=== PATIENT | female | born 1950 | race Caucasian/White ===

== ENCOUNTER → 2017-02-25 | Outpatient (CLI) | payer MEDICARE ==
--- NOTE | 2017-02-25 14:14 | CT ---
EXAMINATION TYPE: CT brain wo con DATE OF EXAM: 02/25/2017 COMPARISON: NONE HISTORY: dizziness, light-headed CT DLP: [address] of the brain was performed. The ventricles, basal cisterns and sulci overlying the cerebral convexities demonstrate mild enlargem ent. There is no evidence for intracranial hemorrhage or sulcal effacement. There is decreased attenuation about the periventricular white matter and deep white matter of both c erebral hemispheres, compatible with chronic small vessel ischemia. Differential diagnosis does inclu de demyelination. No mass effects are seen.No midline shift. Osseous calvarium is intact. If symptoms persist consider MRI. IMPRESSION: 1. Age related atrophic and chronic small vessel ischemic change without acute intracranial process s een at this time.
== END | disposition home or self-care (01) ==
LOC: RADCTMAIN 13:36
PROVIDERS: ATTEND Family Medicine
DX: I67.82 Cerebral ischemia (principal); G31.9 Degenerative disease of nervous system, unspecified; R26.9 Unspecified abnormalities of gait and mobility; Z88.0 Allergy status to penicillin; Z88.2 Allergy status to sulfonamides
CPT/HCPCS: 70450

== ENCOUNTER → 2017-03-19 | Outpatient (CLI) | payer MEDICARE ==
[2017-03-19 10:19] LABS: Blood Urea Nitrogen 21 mg/dL (7-17); Non-African American GFR(MDRD) >60 (>60 ml/min/1.73 sqM)
[2017-03-22 11:56] LABS: Lyme IgG/IgM 0.1 Index; Lyme IgG/IgM Interp NEGATIVE (NEGATIVE)
== END | disposition home or self-care (01) ==
LOC: LABWHC1 09:43
PROVIDERS: ATTEND Psychiatry & Neurology Neurology
DX: R42 Dizziness and giddiness (principal)
CPT/HCPCS: 36415; 82565; 84520; 86618

== ENCOUNTER → 2017-09-24 | Outpatient (CLI) | payer MEDICARE ==
--- NOTE | 2017-09-24 09:12 | MR ---
EXAMINATION TYPE: MR knee RT wo con DATE OF EXAM: 09/24/2017 COMPARISON: NONE HISTORY: Predominantly inner right knee pain for one year TECHNIQUE: Multiplanar, multisequence imaging of the right knee is performed without IV contrast. FINDINGS: MEDIAL MENISCUS: There is a longitudinal tear of the medial meniscus involving the anterior horn, bod y, and posterior horn with associated approximately 2 mm meniscal extrusion. There is no extent into the posterior root. LATERAL MENISCUS: There is a longitudinal tear of the anterior horn of the lateral meniscus extending into the anterior meniscal root with associated multiloculated large intra-articular parameniscal cy st emanating from and situated anterior to the anterior horn of the lateral meniscus measuring at brett st 3.0 x 1.6 cm. CRUCIATE LIGAMENTS: The anterior and posterior cruciate ligaments are intact. There is thickening and increased signal of the entirety of the anterior cruciate ligament without tear compatible with muco id degeneration. COLLATERAL LIGAMENTS: The medial collateral ligament and lateral collateral ligament complex are inta ct. There is high signal both superficial and deep to the medial collateral ligament without tear ind icative of bursitis and low-grade MCL sprain. EXTENSOR MECHANISM: Visualized quadriceps and patellar tendons are intact. EFFUSION: There is a small uncomplicated joint effusion. POPLITEAL CYST: A bilobed, slightly multiloculated popliteal cyst measures 5.6 x 1.3 x 2.9 cm. TRICOMPARTMENT SPACES: There is mild medial compartment joint space narrowing. CARTILAGE: There is a full-thickness cartilaginous defect of the weightbearing surface of the medial tibial plateau measuring 1.3 x 1.0 cm and of the medial femoral condyle measuring 1.0 x 0.4 cm withou t other areas of focal fissuring. There is global thinning and heterogeneity of the lateral compartme nt cartilage without focal defect. Far lateral patellar facet focal cartilaginous defect measures 3 m m and is full-thickness. At the inferior patellar pole there are areas of undermining and focal fissu ring. Trochlear cartilage appears intact. BONE MARROW SIGNAL: There is an osseous cyst with surrounding bone marrow edema of the tibial epiphys is centered around the lateral tibial eminence. Additionally there is bone marrow edema of the medial femoral condyle without focal osteochondral defect measuring 4 mm. Both these are PD hyperintense an d T1 hypointense. Small osseous cysts are also seen in the patella. OTHER: Mild prepatellar subcutaneous soft tissue edema is present.. IMPRESSION: 1. Longitudinal tear of the anterior horn of the lateral meniscus with associated large apparent meni scal cyst measuring 3.0 x 1.6 cm situated anterior to the meniscus. 2. Longitudinal tear of the medial meniscus involving the anterior horn, body, and posterior horn wit h associated 2 mm meniscal extrusion. 3. Focal bone marrow edema of the tibial epiphysis and medial femoral condyle without osteochondral d efect, findings are likely degenerative. 4. Tricompartmental chondrosis and mild arthrosis. Full-thickness cartilaginous defects are seen of t he medial compartment and patellofemoral compartment department as described above. 5. Mucoid degeneration of the anterior cruciate ligament without tear 6. Findings compatible with medial collateral ligament bursitis and low-grade sprain. 7. Small uncomplicated joint effusion and nonspecific prepatellar subcutaneous edema. 7. Large bilobed slightly loculated 5.6 cm popliteal cyst.
== END | disposition home or self-care (01) ==
LOC: RADMRIMAIN 07:02
PROVIDERS: ATTEND Orthopaedic Surgery
DX: S83.241A Other tear of medial meniscus, current injury, right knee, initial encounter (principal); S83.281A Other tear of lateral meniscus, current injury, right knee, initial encounter; R60.0 Localized edema; M17.11 Unilateral primary osteoarthritis, right knee; R93.7 Abnormal findings on diagnostic imaging of other parts of musculoskeletal system; M71.21 Synovial cyst of popliteal space [Baker], right knee

== ENCOUNTER → 2017-10-04 | Outpatient (CLI) | payer MEDICARE ==
[2017-10-04 14:27] LABS: Basophils # (A) 0.1 k/uL (0-0.2); Basophils % (A) 1 %; Eosinophils # (A) 0.2 k/uL (0-0.7); Eosinophils % (A) 4 %; HCT 40.2 % (34.0-46.0); HGB 13.6 gm/dL (11.4-16.0); Lymphocytes # (A) 1.5 k/uL (1.0-4.8); Lymphocytes % (A) 29 %; MCH 30.4 pg (25.0-35.0); MCHC 33.9 g/dL (31.0-37.0); MCV 89.5 fL (80.0-100.0); Mean Platelet Volume 6.8; Monocytes # (A) 0.3 k/uL (0-1.0); Monocytes % (A) 6 %; Neutrophils # (A) 2.9 k/uL (1.3-7.7); Neutrophils % (A) 58 %; Platelet Count 225 k/uL (150-450); RBC 4.49 m/uL (3.80-5.40); RDW 12.7 % (11.5-15.5); WBC 5.1 k/uL (3.8-10.6)
[2017-10-04 14:36] LABS: Potassium 4.8 mmol/L (3.5-5.1)
== END | disposition home or self-care (01) ==
LOC: LABPAT 13:45
PROVIDERS: ATTEND Orthopaedic Surgery
DX: Z01.812 Encounter for preprocedural laboratory examination (principal); Z01.818 Encounter for other preprocedural examination; M23.91 Unspecified internal derangement of right knee
CPT/HCPCS: 36415; 80051; 85025; 93005

== ENCOUNTER 2017-10-17 09:17 | Day surgery (SDC) | payer MEDICARE ==
[2017-10-07 11:06] VITALS: BMI 34.3
--- NOTE | 2017-10-16 14:52 | HP ---
HISTORY AND PHYSICAL DATE OF SERVICE: 10/17/2017 Liseth Arechiga is a 67-year-old patient who is seen with progressive right knee. We discussed treatment options. She elected to proceed with right knee arthroscopy. Consent regarding the procedure was obtained. PAST MEDICAL HISTORY: Hypertension and hyperlipidemia. PAST SURGICAL HISTORY: Noncontributory. DAILY MEDICATIONS: 1. Simvastatin. 2. Ibuprofen. ALLERGIES: PENICILLIN, SULFA. SOCIAL HISTORY: Patient denies tobacco use. PHYSICAL EVALUATION RIGHT KNEE: Range of motion is -1 to 120 degrees. Mild effusion. There is tenderness along the medial and lateral joint lines. Positive medial Sofie's. Positive lateral Sofie's. Crepitus, medial and patellofemoral compartments with range of motion. Ligaments stable. Hip rotation without pain. Distal neurovascular exam intact. RIGHT KNEE RADIOGRAPHS: Revealed moderate to severe medial and moderate patellofemoral compartment osteoarthritis. Right knee MRI revealed medial meniscal tear, lateral meniscal tear as well as osteoarthritis. IMPRESSION: 1. Internal derangement, right knee with medial lateral meniscal tears. 2. Right knee osteoarthritis. 3. Hypertension. 4. Hyperlipidemia. PLAN: Right knee arthroscopy with partial meniscectomy and debridement. MMODL / IJN: [id number] /
[~2017-10-17 09:17] MED LIST: DEXAMETHASONE SOD PHOSPHATE 10 MG/ML 1 ML VIAL IV ONE; HYDROmorphone 0.5 MG/0.5 ML SYRINGE IVP PRN; LACTATED RINGERS 1,000 ML IV SCH; MORPHINE SULFATE 4 MG/ML SYRINGE IV PRN; ONDANSETRON 4 MG/2 ML VIAL IVP ONE; ceFAZolin IN SWFI 2 GM/20 ML SYRINGE IVP ONE
[2017-10-17] MEDS ORDERED: LIDOCAINE 1% 20 ML VIAL (10MG/ML) FOR IV START INTRADERMA ONE (09:53)
[2017-10-17] MEDS ORDERED: fentaNYL (PF) 50 MCG/ML 2 ML AMP ONE (10:31)
[2017-10-17] MEDS ORDERED: SUCCINYLCHOLINE CHLORIDE VIAL 200 MG/10 ML VIAL IV ONE (10:31)
[2017-10-17] MEDS ORDERED: DEXAMETHASONE SOD PHOS (MDV) 100 MG/10 ML VIAL ONE (10:31)
[2017-10-17] MEDS ORDERED: BUPIVACAINE (PF) 0.25% 30 ML VIAL INTRAARTIC ONE (10:31)
[2017-10-17] MEDS ORDERED: KETOROLAC 30 MG/ML 1 ML VIAL ONE (10:31)
[2017-10-17] MEDS ORDERED: PROPOFOL 10 MG/ML 20 ML VIAL IV ONE (10:31)
[2017-10-17] MEDS ORDERED: MIDAZOLAM 2 MG/2 ML VIAL ONE (10:31)
[2017-10-17] MEDS ORDERED: LIDOCAINE 1% INJ 10MG/ML (20 ML MDV) ONE (10:31)
[2017-10-17] MEDS ORDERED: LACTATED RINGERS 1,000 ML IV ONE (11:30)
--- NOTE | 2017-10-17 11:54 | P.OP ---
Date of Procedure: 10/17/17 Preoperative Diagnosis: Internal derangement right knee Postoperative Diagnosis: 1. Tear medial and lateral meniscus right knee 2. Grade 3/4 chondromalacia medial femoral condyle right knee 3. Grade 2 chondromalacia lateral femoral condyle right knee 4. Grade 3 chondromalacia patella right knee 5. Partial ACL tear right knee 6. Reactive synovitis medial, lateral and suprapatellar compartments right knee Procedure(s) Performed: 1. Arthroscopic partial medial and lateral meniscectomy right knee 2. Arthroscopic chondroplasty medial femoral condyle right knee 3. Arthroscopic chondroplasty lateral femoral condyle right knee 4. Arthroscopic chondroplasty patella right knee 5. Arthroscopic debridement partial ACL tear right knee 6. Arthroscopic partial synovectomy medial, lateral and suprapatellar compartments right knee Anesthesia: FERNANDAA, local Surgeon: Calvin Alexis Estimated Blood Loss (ml): 13 Pathology: none sent Condition: stable Disposition: PACU Indications for Procedure: 67-year-old patient seen with progressive right knee pain. After treatment options were discussed, she elected to proceed with arthroscopy. Operative Findings: See description of procedure Description of Procedure: Patient was taken to the operative suite. Patient underwent a general anesthetic by the department of anesthesia. Patient was given preoperative antibiotics. The right lower extremity was placed in a well-padded arthroscopic leg haddad. The right leg was prepped and draped in the normal sterile orthopedic fashion. A lateral parapatellar and suprapatellar incision was made. Trochars were inserted. Arthroscopy was initiated. Suprapatellar pouch revealed diffuse thick reactive synovitis. The patellofemoral joint appeared to articulate congruently. There was grade 3 chondromalacia of the patella with some osteochondral tears present. The scope was guided into the medial gutter. No loose bodies or plica were identified. The scope was then guided into the medial compartment. A medial parapatellar incision was made. Trocar inserted followed by probe. There was a complex tear of the medial meniscus involving the posterior horn and midbody. There were grade 3 and 4 chondromalacia changes of the medial femoral condyle with diffuse osteochondral tears present. There were grade 3 chondromalacia changes of the tibial plateau. There was reactive synovitis anteriorly. I performed a partial medial meniscectomy down to stable tissue. I performed a chondroplasty of the medial femoral condyle down to stable tissue and partial synovectomy. The residual meniscus was stable. The residual osteochondral surface was stable. Scope and probe were then guided into the intercondylar notch. There was a few fibers of the anterior cruciate ligament that appeared to be torn and degenerated. I introduced a motorized shaver and debrided that. The residual ACL was now seen and probed and found to be stable. The PCL was stable.. The scope and probe were then guided into lateral compartment. There was a tear involving the mid body and posterior horn lateral meniscus. There was an area of grade 2 chondromalacia central weightbearing portion lateral femoral condyle with small osteochondral tears present. There was reactive synovitis anteriorly. I performed a partial lateral meniscectomy down to stable tissue. I performed a chondroplasty of the lateral femoral condyle down to stable tissue. I performed a partial synovectomy. The residual meniscus and osteochondral surface were probed and found to be stable. The scope was in guided back into the suprapatellar compartment. I introduced a motorized shaver into the suprapatellar compartment. I debrided some piecemeal fragments of meniscus I encountered. I performed a chondroplasty of the patella down to stable tissue. I performed a partial synovectomy. The shaver was removed. I took one more look on the entire knee, no residual debris. Instruments were now removed from the joint. The joint was infiltrated with .25% Marcaine. Steri-Strips were applied to the portal sites. Sterile dressings were applied. The patient was placed into a NIURKA hose. No tourniquet was utilized. The patient was awakened, transferred to a bed and taken to recovery stable satisfactory condition.
[2017-10-17 11:58] VITALS: TEMP 97
[2017-10-17 12:12] VITALS: RESP 16
[2017-10-17 13:30] VITALS: BP 138/77; PULSE 84
== END 2017-10-17 13:51 | disposition home or self-care (01) ==
LOC: OR 09:17
PROVIDERS: ATTEND Orthopaedic Surgery
DX: S83.231A Complex tear of medial meniscus, current injury, right knee, initial encounter (principal); S83.281A Other tear of lateral meniscus, current injury, right knee, initial encounter; M94.261 Chondromalacia, right knee; M22.41 Chondromalacia patellae, right knee; S83.511A Sprain of anterior cruciate ligament of right knee, initial encounter; X58.XXXA Exposure to other specified factors, initial encounter; M65.861 Other synovitis and tenosynovitis, right lower leg; M17.11 Unilateral primary osteoarthritis, right knee; M25.461 Effusion, right knee; I10 Essential (primary) hypertension; E78.5 Hyperlipidemia, unspecified; R32 Unspecified urinary incontinence; K21.9 Gastro-esophageal reflux disease without esophagitis; Z85.828 Personal history of other malignant neoplasm of skin; Z79.1 Long term (current) use of non-steroidal anti-inflammatories (NSAID); Z79.899 Other long term (current) drug therapy; Z88.0 Allergy status to penicillin; Z88.2 Allergy status to sulfonamides; Z88.1 Allergy status to other antibiotic agents
CPT/HCPCS: 29880; J2250; J0330; J1100 ×2; J2405; J2001; J3010; J1885; J2704; J1170; J0690

== ENCOUNTER → 2017-12-27 | Outpatient (CLI) | payer MEDICARE | END | disposition home or self-care (01) | LOC: LABPAT 11:14 | PROVIDERS: ATTEND Orthopaedic Surgery | DX: Z01.812 Encounter for preprocedural laboratory examination (principal) | CPT/HCPCS: 87070 ==

== ENCOUNTER 2018-01-06 12:34 | Inpatient (IN) | payer MEDICARE ==
[2017-12-30 11:11] VITALS: BMI 35.2
--- NOTE | 2018-01-05 13:53 | HP ---
HISTORY AND PHYSICAL DATE OF SERVICE: Surgery scheduled for 01/06/2018. HISTORY: Liseth Arechiga is a 67-year-old patient seen with progressive right knee pain. Treatment options were discussed. She elected to proceed with right total knee arthroplasty. Consent was obtained. Consent was obtained. Medical clearance was provided by Dr. Barraza's office. PAST MEDICAL HISTORY: Hypertension, osteoarthritis, hyperlipidemia. PAST SURGICAL HISTORY: Knee arthroscopy. MEDICATIONS: Simvastatin, ibuprofen. ALLERGIES: PENICILLIN, SULFA. SOCIAL HISTORY: Patient denies tobacco use. PHYSICAL EXAMINATION: Evaluation right knee, range of motion is -2/3 to 115 degrees. There is some tenderness along the medial joint line. Crepitus along the medial patellofemoral compartment with range of motion. Ligaments stable. Hip rotation without pain. Distal neurovascular exam intact. RADIOGRAPHS: Right knee radiographs reveal severe medial moderate patellofemoral compartment osteoarthritis. IMPRESSION: 1. Right knee osteoarthritis. 2. Hypertension. 3. Hyperlipidemia. PLAN: Right total knee arthroplasty. MMODL / IJN: [id number] /
[~2018-01-06 12:34] MED LIST changes: +ACETAMINOPHEN TAB 500 MG TAB PO ONE; -DEXAMETHASONE SOD PHOSPHATE 10 MG/ML 1 ML VIAL IV ONE; -LACTATED RINGERS 1,000 ML IV SCH; +LIDOCAINE 1% 20 ML VIAL (10MG/ML) FOR IV START INTRADERMA PRN; +MELOXICAM 7.5 MG TAB PO ONE; -MORPHINE SULFATE 4 MG/ML SYRINGE IV PRN; +TRANEXAMIC ACID 1,000 MG in SODIUM CHLORIDE 0.9% 50 ML IVPB ONE
[2018-01-06] MEDS: LACTATED RINGERS 1,000 ML IV SCH (13:22)
[2018-01-06] MEDS ORDERED: MIDAZOLAM 2 MG/2 ML VIAL ONE ×2 (13:41→15:06)
[2018-01-06] MEDS ORDERED: MIDAZOLAM 2 MG/2 ML VIAL IVP ONE (14:19)
[2018-01-06] MEDS ORDERED: ROPIVACAINE 1,100 MG, SODIUM CHLORIDE 0.9% 330 ML MISCELLANE PRN ×2 (14:39)
--- NOTE | 2018-01-06 14:40 | P.ONQ ---
Anesthesiology Proc Note - PNB - Peripheral Nerve Block Performed Right Adductor Canal Procedure Start Time: 14:17 Procedure Stop Time: 14:33 Indication: Acute Post-Operative Pain, Requested by physician (Dr Alexis) Sedation Type: Sedate with meaningful contact maintained Preparation: Sterile Dressing Position: Supine Catheter: Indwelling Needle Types: Other (see comment) (Erik) Needle Size: 50mm (2") Needle Gauge: 21 Technique: Ultrasound Injectate: 0.5% Ropivacaine (see comment for volume) (20cc) Blood Aspirated: No Pain Paresthesia on Injection Noted: No Resistance on Injection: Normal Events: Uneventful and Well Tolerated
[2018-01-06] MEDS ORDERED: ROPIVACAINE 246.25 MG, EPINEPHrine 0.5 MG, KETOROLAC 30 MG, cloNIDine HCL/PF 80 MCG, WA... MISCELLANE ONE ×5 (15:02)
[2018-01-06] MEDS ORDERED: PROPOFOL 10 MG/ML 20 ML VIAL IV ONE (15:06)
[2018-01-06] MEDS ORDERED: BUPIVACAINE (PF) 0.75% 10 ML VIAL ONE (15:06)
[2018-01-06] MEDS ORDERED: ceFAZolin 3,000 MG in SODIUM CHLORIDE 0.9% IRRIGATIO 3,000 ML IRRIGATION ONE (15:06)
[2018-01-06] MEDS ORDERED: fentaNYL (PF) 50 MCG/ML 2 ML AMP ONE (15:06)
[2018-01-06] MEDS ORDERED: TRANEXAMIC ACID 1,000 MG/10 ML VIAL ONE (15:06)
[2018-01-06] MEDS ORDERED: DEXTROSE 50%-WATER 50 ML VIAL IV ONE (15:06)
[2018-01-06] MEDS ORDERED: SODIUM CHLORIDE 0.9% 100 ML BAG ONE (15:06)
[2018-01-06] MEDS ORDERED: LACTATED RINGERS 1,000 ML IV ONE (16:40)
[2018-01-06] MEDS ORDERED: ONDANSETRON 4 MG/2 ML VIAL IVP PRN (17:04)
[2018-01-06] MEDS ORDERED: NALOXONE 0.4 MG/ML 1 ML VIAL IV PRN (17:04)
[2018-01-06] MEDS ORDERED: HYDROcodone/APAP 5-325MG 1 EACH TAB PO PRN (17:04)
[2018-01-06] MEDS ORDERED: hydrOXYzine PAMOATE 25 MG CAP PO PRN (17:04)
[2018-01-06] MEDS ORDERED: HYDROmorphone 1 MG/ML 1 ML SYRINGE IVP PRN ×3 (17:04)
--- NOTE | 2018-01-06 17:04 | P.OP ---
Date of Procedure: 01/06/18 Preoperative Diagnosis: Right knee osteoarthritis Postoperative Diagnosis: Right knee osteoarthritis Procedure(s) Performed: Right total knee arthroplasty Implants: 1. Depuy attune size 6 right cruciate retaining cemented femur 2. Depuy attune size 6 right fixed bearing cemented tibial baseplate 3. Depuy attune fixed bearing cruciate retaining size 6 7mm polyethylene tibial insert 4. Depuy attune 38 mm all polyethylene cemented patella Anesthesia: regional (Adductor canal catheter), local, spinal Surgeon: Calvin Alexis Dope Sprayer #1: Santhosh Raymundo Estimated Blood Loss (ml): 45 Pathology: none sent Condition: stable Disposition: PACU Indications for Procedure: 67-year-old patient seen with symptomatic right knee osteoarthritis. After treatment options were discussed, she elected to proceed with total knee arthroplasty. Operative Findings: See description of procedure Description of Procedure: Patient was taken to the operative suite after having an adductor canal catheter placed by the department of anesthesia. Patient underwent a spinal anesthetic by the department of anesthesia. Patient was given preoperative IV intake antibiotics and TXA. A well-padded tourniquet was placed about the right lower extremity. The lower extremity was then prepped and draped in the normal sterile orthopedic fashion. The extremity was elevated, a tourniquet was insufflated to 300. A standard anterior incision was made sharply through skin. Dissection was taken down through the subcutaneous soft tissues down to the extensor mechanism. A medial arthrotomy was performed, patella was everted and knee was flexed. There was advanced osteoarthritis noted. I introduced my distal intramedullary femoral drill. I then introduced the distal femoral cutting jig. Beny ROBLES secured the cutting jig with 2 pins. I held retractors in position while Beny ROBLES performed the distal femoral resection through the guide area we now removed her distal femoral cutting guide. We now placed our 4-in-1 femoral cutting block and positioned and it was secured with 2 pins by Beny ROBLES while I held the block in position. The distal femoral finishing was now completed. A proximal tibial cutting guide was positioned. I held the guide in the appropriate position with both hands well Beny ROBLES inserted stabilizing pins into the guide. Proximal tibial cut was made. We now placed a trial femoral component into position, along with an appropriate size tibial tray and insert. We now took the knee through range of motion and had full extension good flexion and good overall soft tissue balance noted. The patella was everted and stabilized with 2 towel clips held by Beny ROBLES while I performed a flush with patellar quad tendon utilizing a fresh sawblade. We templated the patella, appropriate drill holes were made. An appropriate trial patella was positioned, knee was taken through full range of motion with the patella tracking very nicely. The trial patella was removed. Drill holes were made through the femoral component. All trial components were removed after marking off the appropriate rotation of the tibia. Retractors were now positioned along the proximal tibia. An appropriate keel punch was made with the appropriate size tibial guide by myself while Beny ROBLES assisted by holding retractors. At this point appropriate size implants were chosen and opened. The joint was irrigated copiously with pulse lavage mechanical irrigation. The posterior capsule was infiltrated with local analgesic. The wound was irrigated with pulse lavage mechanical irrigation. We mixed antibiotic methylmethacrylate. We placed the knee into flexion. We placed multiple retractors assisted by Beny ROBLES to expose the proximal tibia. Once the methyl methacrylate was ready, the tibial component was cemented into place removing any excess methylmethacrylate performed by both myself and Beny ROBLES. The femoral component was cemented into place removing the removing any excess methylmethacrylate performed by both myself and Beny ROBLES. We then inserted the appropriate size polyethylene tibial insert. We made sure that it was locked into position. We took the knee into full extension, and then back in a flexion making sure we had removed any excess methylmethacrylate. The patellar component was then cemented down and secured with clamp. Excess methylmethacrylate removed. We kept the knee in full extension, patellar clamp in position until methylmethacrylate had hardened. Once it had hardened the patellar clamp was removed. The knee was taken through full range of motion. The patella tracked nicely. There was good soft tissue balancing. The tourniquet was now released. Additional hemostasis was achieved via electrocautery. A second gram of TXA was given. The wound again was irrigated with pulse lavage mechanical irrigation. The superficial soft tissues were infiltrated local analgesic. The extensor mechanism was repaired with Vicryl. We checked the repair with range of motion and it was stable. The subcutaneous soft tissues were repaired with Vicryl in layers. The skin was approximated with pernio/Dermabond. Sterile dressings were applied followed by loose web roll and Branden bandage. The patient was transferred to a bed, and taken to recovery in stable and satisfactory condition. Beny ROBLES assisted with this complex procedure.
--- NOTE | 2018-01-06 17:46 | XR ---
EXAMINATION TYPE: XR knee limited RT DATE OF EXAM: 01/06/2018 COMPARISON: 09/10/2017 HISTORY: Postop knee surgery TECHNIQUE: 2 views. FINDINGS: There is a new right knee prosthesis. Components are in anatomic position. IMPRESSION: No complicating process seen.
[2018-01-06] MEDS: traMADol 50 MG TAB PO SCH ×2 (18:26→21:15)
[2018-01-06] MEDS: HYDROcodone/APAP 5-325MG 1 EACH TAB PO PRN (19:11)
[2018-01-06] MEDS: SENNOSIDES-DOCUSATE SODIUM 1 EACH TAB PO SCH (19:12)
[2018-01-06] MEDS: ceFAZolin IN SWFI 2 GM/20 ML SYRINGE IVP SCH (22:57)
[2018-01-07] MEDS ORDERED: POLYETHYLENE GLYCOL 3350 17 GM POWD.PACK PO SCH ×2 (01:45→08:00)
[2018-01-07] MEDS: HYDROcodone/APAP 5-325MG 1 EACH TAB PO PRN ×2 (03:38→08:39)
[2018-01-07] MEDS: LACTATED RINGERS 1,000 ML IV SCH (05:24)
--- NOTE | 2018-01-07 05:45 | CONS ---
CONSULTATION DATE OF SERVICE: 01/06/2018. REASON FOR CONSULTATION: Advice regarding hyperlipidemia and other medical issues requested by Dr. Alexis. HISTORY OF PRESENT ILLNESS: This 67-year-old woman with a past history of DJD, hyperlipidemia, history of skin cancer being followed by Dr. Vanessa Barraza in the outpatient setting was admitted after total right knee arthroplasty for severe DJD by Dr. Alexis. The patient tolerated the procedure. There is no history of fever, rigors or chills. No history of headache, loss of consciousness, seizures at this time. PAST MEDICAL HISTORY: Hyperlipidemia, history of DJD, history of skin cancer,. MEDICATIONS: Medications prior to admission include: 1. Zocor 80 mg q.h.s. 2. MiraLAX 17 g p.o. q.48h. 3. Ditropan XL 15 mg p.o. 4. Melatonin 5 mg q.h.s. 5. Advil 600 mg p.o. daily. 6. Vitamin D3 2000 daily. 7. Aspirin 162 mg p.o. q.h.s. ALLERGIES: Are ZITHROMAX, PENICILLIN, SULFA. FAMILY HISTORY: History of cancer, CVA, TIA, amyloidosis. SOCIAL HISTORY: No history of smoking. Occasional alcohol intake. REVIEW OF SYSTEMS: ENT: No diminished hearing or vision. CARDIOVASCULAR: No angina or palpitations. RESPIRATORY: As mentioned earlier. GI: No nausea. : No dysuria. NERVOUS SYSTEM: No numbness or weakness. ALLERGY/IMMUNOLOGY: No history of asthma or hay fever. MUSCULOSKELETAL: As mentioned earlier. HEMATOLOGY/ONCOLOGY: No history of diabetes or hypothyroidism. CONSTITUTIONAL: As mentioned earlier. DERMATOLOGY: Negative. RHEUMATOLOGY: Negative. PSYCHIATRY: As mentioned earlier. PHYSICAL EXAMINATION: Alert and oriented x2. Pulse is 72, blood pressure 148/79, respiration 20, temperature is normal. Pulse ox 98% on room air. HEENT: Conjunctivae normal. Oral mucosa moist. NECK: No jugular venous distention. No carotid bruit. No lymph node enlargement. CARDIOVASCULAR: S1, S2. RESPIRATORY: Breath sounds diminished in the bases. No rhonchi, no crackle. ABDOMEN: Soft, nontender. LEGS: Status post knee arthroplasty. NERVOUS SYSTEM: Higher functions as mentioned. Moves all four limbs. No focal motor deficits. LYMPHATICS: No lymphadenopathy in the neck, axillae, groin. SKIN: No ulcer, rash. LABS: CBC and BMP within normal limits. ASSESSMENT: 1. Status post right total knee arthroplasty. 2. Hyperlipidemia. 3. History of skin cancer. 4. History of nephrolithiasis. RECOMMENDATIONS AND DISCUSSION: This 67-year-old woman present presented after surgery, at this time I recommend to continue current management and symptomatic treatment. I recommend resume the home medications and otherwise, pain medications. DVT prophylaxis, incentive spirometry. We will follow the patient closely. The patient may be asked to follow up with Dr. Vanessa Barraza closely after discharge. Thank you Dr. Alexis for letting us participate in the care of this patient. Please send a copy of dictation to Dr. Vanessa Barraza. MMGIANAL / IJN: [id number] / DEBRA
--- NOTE | 2018-01-07 06:28 | P.PN ---
Progress Note - Text Progress Note Date: 01/07/18 67-year-old female status post right total knee arthroplasty postop day #[address] sujey boswell. Patient is doing well resting comfortably in bed. VAS is a 3/10. Patient is yet to ambulate will continue with current On-Q settings.
[2018-01-07 07:16] LABS: Basophils % (A) 0 %; Eosinophils % (A) 1 %; HCT 37.4 % (34.0-46.0); HGB 12.4 gm/dL (11.4-16.0); Lymphocytes # (A) 0.7 k/uL (1.0-4.8); Lymphocytes % (A) 10 %; MCH 30.3 pg (25.0-35.0); MCV 91.8 fL (80.0-100.0); Mean Platelet Volume 6.9; Monocytes # (A) 0.5 k/uL (0-1.0); Monocytes % (A) 6 %; Neutrophils # (A) 6.3 k/uL (1.3-7.7); Neutrophils % (A) 82 %; Platelet Count 203 k/uL (150-450); RBC 4.08 m/uL (3.80-5.40); RDW 13.7 % (11.5-15.5); WBC 7.6 k/uL (3.8-10.6)
[2018-01-07] MEDS: ceFAZolin IN SWFI 2 GM/20 ML SYRINGE IVP SCH (07:43)
[2018-01-07] MEDS: MELOXICAM 7.5 MG TAB PO SCH (07:44)
[2018-01-07] MEDS: CHOLECALCIFEROL 1,000 UNIT TAB PO SCH (07:44)
[2018-01-07] MEDS: ENOXAPARIN 30 MG/0.3 ML SYRINGE SQ SCH ×2 (07:44→20:09)
[2018-01-07] MEDS: OXYBUTYNIN 15 MG TAB.ER.24 PO SCH (07:45)
[2018-01-07] MEDS: traMADol 50 MG TAB PO SCH ×4 (07:45→21:59)
[2018-01-07] MEDS ORDERED: HYDROcodone/APAP 7.5-325MG 1 EACH TAB PO PRN (11:47)
[2018-01-07] MEDS: MULTIVITAMINS, THERA 1 EACH TAB PO SCH (11:57)
--- NOTE | 2018-01-07 12:10 | P.PN ---
Subjective Progress Note Date: 01/07/18 Principal diagnosis: Status post right total knee arthroplasty Patient seen today resting in her hospital bed, she appears comfortable. She is family at bedside. She's ambulated with therapy. She denies any headaches, lightheadedness, chest pain or shortness of breath. Objective - Vital Signs Vital signs: Vital Signs Temp 98.1 F 01/07/18 07:00 Pulse 78 01/07/18 07:00 Resp 17 01/07/18 07:00 BP 111/71 01/07/18 07:00 Pulse Ox 93 L 01/07/18 07:00 Intake & Output 01/06/18 01/07/18 01/07/18 18:59 06:59 18:59 Intake Total 1151 840 Output Total 45 200 Balance 1106 640 Weight 92.986 kg Intake: IV 1151 Intake, IV Titration 240 Amount Lactated Ringers 1,000 ml 240 @ 20 mls/hr IV .Q24H RIAN Rx#:[id number] Other 600 Output: Urine 200 Estimated Blood Loss 45 Other: Voiding Method Toilet # Voids 3 - Exam Right lower extremity: Incision is clean, dry, and intact. The prineo tape is in good condition. There is minimal soft tissue swelling and ecchymosis surrounding the medial and lateral aspects of the incision. Calf is soft, no tenderness with palpation. Plantar flexion, dorsiflexion, EHL, FHL are intact. Sensory exam to light touch throughout the extremity is intact, dorsal pedis pulses 2+. - Labs CBC & Chem 7: 01/07/18 06:43 Labs: Abnormal Lab Results - Last 24 Hours (Table) 01/07/18 Range/Units 06:43 Lymphocytes # 0.7 L (1.0-4.8) k/uL Assessment and Plan Plan: Assessment: Postoperative day #1 status post right total knee arthroplasty Plan: Pain control, continue use current medication GI and DVT prophylaxis, continue current medication Wound care was discussed Continue work with therapy and use of CPM Medical recommendations Discharge planning: Patient will likely be discharged home tomorrow Time with Patient: Less than 30
--- NOTE | 2018-01-07 14:39 | PN ---
PROGRESS NOTE DATE OF SERVICE: 01/07/2018 This is a 67-year-old woman who was admitted right after total knee arthroplasty, improved significantly. No chest pain. No palpitations. No fever. PHYSICAL EXAM: Alert and oriented attentive pulse 78, blood pressure 140/72 respirations 17, temperature 98.1, pulse ox 98% on room air. In general, mucosa neck is no jugular venous distention. No carotid bruit. No lymph nodes. CARDIOVASCULAR SYSTEM S1, S2 muffled. RESPIRATORY: Breath sounds diminished at the bases, no rhonchi, no crackles. ABDOMEN: Soft. LEGS: Status post knee arthroplasty. No cyst focal deficits. LABS: CBC within normal limits. ASSESSMENT: 1. Status post right total knee arthroplasty. 2. Hyperlipidemia. 3. History of skin cancer history, off ABX, recommend to continue current management, monitoring, symptomatic treatment. Otherwise closely monitor. Further recommendations to follow. MMODL / IJN: [id number] /
[2018-01-07] MEDS: HYDROcodone/APAP 7.5-325MG 1 EACH TAB PO PRN (15:08)
[2018-01-07] MEDS: SENNOSIDES-DOCUSATE SODIUM 1 EACH TAB PO SCH (20:09)
[2018-01-07] MEDS ORDERED: ATORVASTATIN 40 MG TAB PO SCH (21:00)
[2018-01-07] MEDS ORDERED: MELATONIN 5 MG TABLET PO SCH (21:00)
[2018-01-08] MEDS: HYDROcodone/APAP 7.5-325MG 1 EACH TAB PO PRN ×3 (01:56→13:09)
[2018-01-08] MEDS: LACTATED RINGERS 1,000 ML IV SCH (05:35)
[2018-01-08] MEDS: MULTIVITAMINS, THERA 1 EACH TAB PO SCH (08:07)
[2018-01-08] MEDS: MELOXICAM 7.5 MG TAB PO SCH (08:07)
[2018-01-08] MEDS: ENOXAPARIN 30 MG/0.3 ML SYRINGE SQ SCH (08:07)
[2018-01-08] MEDS: CHOLECALCIFEROL 1,000 UNIT TAB PO SCH (08:08)
[2018-01-08] MEDS: traMADol 50 MG TAB PO SCH (08:10)
[2018-01-08 08:18] VITALS: BP 124/77; PULSE 87; RESP 18; TEMP 98.5
[2018-01-08] MEDS: OXYBUTYNIN 15 MG TAB.ER.24 PO SCH (10:02)
--- NOTE | 2018-01-08 11:07 | P.PN ---
Subjective Progress Note Date: 01/08/18 Principal diagnosis: Status post right total knee arthroplasty Patient seen today resting in her hospital bed, she appears comfortable. She is family at bedside. She's ambulated with therapy. She denies any headaches, lightheadedness, chest pain or shortness of breath. Objective - Vital Signs Vital signs: Vital Signs Temp 98.5 F 01/08/18 07:00 Pulse 87 01/08/18 07:00 Resp 18 01/08/18 07:00 BP 124/77 01/08/18 07:00 Pulse Ox 97 01/08/18 07:00 Intake & Output 01/07/18 01/08/18 01/08/18 18:59 06:59 18:59 Intake Total 320 Balance 320 Intake: Intake, IV Titration 320 Amount Lactated Ringers 1,000 ml 320 @ 20 mls/hr IV .Q24H RIAN Rx#:[id number] Other: Voiding Method Toilet # Voids 1 3 - Exam Right lower extremity: Incision is clean, dry, and intact. The prineo tape is in good condition. There is minimal soft tissue swelling and ecchymosis surrounding the medial and lateral aspects of the incision. Calf is soft, no tenderness with palpation. Plantar flexion, dorsiflexion, EHL, FHL are intact. Sensory exam to light touch throughout the extremity is intact, dorsal pedis pulses 2+. - Labs CBC & Chem 7: 01/07/18 06:43 Assessment and Plan Plan: Assessment: Postoperative day #2 status post right total knee arthroplasty Plan: Pain control, continue use current medication GI and DVT prophylaxis, continue current medication Wound care was discussed Continue work with therapy and use of CPM Medical recommendations Discharge planning: Patient will be discharged home today Time with Patient: Less than 30
--- NOTE | 2018-01-08 11:11 | P.DS ---
Providers Date of admission: 01/06/18 12:34 Expected date of discharge: 01/08/18 Attending physician: Calvin Alexis Consults: 01/06/18 17:04 Consult Physician Routine Consulting Provider: Vanessa Barraza Consult Reason/Comments: Medical management Do you want consulting provider notified?: Yes 01/06/18 17:16 Consult Physician Routine Consulting Provider: Elin Dahl Consult Reason/Comments: Medical management Do you want consulting provider notified?: Yes Primary care physician: Vanessa Barraza Hospital Course: Date of admission: 01/06/2018 Date of discharge: 01/08/2018 Admission diagnosis: Status post right total knee arthroplasty Discharge diagnosis: Same Attending physician: Dr. Alexis Surgical procedures: Right total knee arthroplasty Brief history: Patient is a 67-year-old female with a history of with progressive primary right knee osteoarthritis. At this point patient has failed conservative treatment measures and has opted to proceed with a elective right total knee arthroplasty. Hospital course: Details of patient's surgery can be found in operative report. Patient tolerated the procedure well and was subsequently transported to orthopedic floor. Patient's orthopeidc and medical care was provided daily. Patient had daily laboratory tests performed for evaluation of overall blood counts. Patient had daily physical therapy to include strengthening range of motion as well as education with walker ambulation. Patient had daily CPM usage as part of their physical therapy program. Patient was treated with Lovenox for their postoperative DVT prophylaxis during their inpatient stay. Patient was noted to have a relatively uneventful postoperative course. Patient reported satisfactory pain control with oral pain medications by postoperative day 0. Patient showed satisfactory progress with physical therapy. Patient moved steadily through the program and had no difficulty meeting the goals by postoperative day 2. Given patient's otherwise satisfactory course and having met physical therapy goals, plan is to discharge patient home on postoperative day 2. Discharge condition/disposition: Patient will be discharged home in stable condition. Discharge medications: Instructions are given on resumption of patient's normal daily medications per primary care recommendation, in addition patient will be prescribed [place] 7.5mg/325mg, Tramadol 50mg, Aspirin 325mg. Discharge instructions: 1. Wound care and infection precautions, keep incision dry and covered while showering, no lotions, creams, moisturizers. No soaking, tubs, pools, hottubs. Do not scrub over the incision. 2. Weight-bear as tolerated with walker / cane until follow-up. 3. Ice and elevate when necessary. Do not exceed 20 minutes per hour with ice pack. 4. Utilize compression sleeve until seen at first follow up appointment. 5. Visiting nursing care. 6. Home physical therapy including home CPM. 7. Pain meds and anticoagulants per prescription. 8. Pain medication has potential to cause constipation. Increase oral fluid and fiber intake. Contact primary care provider if you have not had a bowel movement within 48 hours after discharge 9. No anti-inflammatory medication until discussed at first post operative visit, this including Motrin, Aleve, Mobic, Diclofenac. 10. Follow up in office at 2 weeks postop with Beny Raymundo PA-C 11. Follow up with your primary care doctor 7-10 days after discharge. 12. Contact [facility] with any questions, . Procedures: Right total knee arthroplasty Patient Condition at Discharge: Good Plan - Discharge Summary Discharge Rx Participant: Yes New Discharge Prescriptions: New Aspirin 325 mg PO BID #60 tab HYDROcodone/APAP 7.5-325MG [[place] 7.5] 1 - 2 each PO Q6HR PRN #56 tab PRN Reason: Pain traMADol HCl [Ultram] 50 mg PO Q6H PRN #28 tab PRN Reason: Pain No Action Simvastatin [Zocor] 80 mg PO HS Melatonin 5 mg PO HS Polyethylene Glycol 3350 [Miralax] 17 gm PO Q48H Oxybutynin Chloride [Ditropan XL] 15 mg PO DAILY Cholecalciferol [Vitamin D3] 2,000 unit PO DAILY Discharge Medication List Simvastatin [Zocor] 80 mg PO HS 03/15/14 [History] Melatonin 5 mg PO HS 02/03/15 [History] Oxybutynin Chloride [Ditropan XL] 15 mg PO DAILY 10/07/17 [History] Polyethylene Glycol 3350 [Miralax] 17 gm PO Q48H 10/07/17 [History] Cholecalciferol [Vitamin D3] 2,000 unit PO DAILY 12/30/17 [History] Aspirin 325 mg PO BID #60 tab 01/08/18 [Rx] HYDROcodone/APAP 7.5-325MG [[place] 7.5] 1 - 2 each PO Q6HR PRN #56 tab 01/08/18 [ Rx] traMADol HCl [Ultram] 50 mg PO Q6H PRN #28 tab 01/08/18 [Rx] Follow up Appointment(s)/Referral(s): Santhosh Raymundo PAC [PHYSICIAN INFORMATION SECURITY ASSOCIATE] - 01/22/18 2:10 pm [facility] Visiting Nurse, [NON-STAFF] - As Needed Activity/Diet/Wound Care/Special Instructions: Orthopedic Discharge Instructions: 1. Wound care and infection precautions, [keep incision dry and covered while showering], no lotions, creams, moisturizers. No soaking, pools, hot tubs. Do not scrub over incision. 2. Weight-bear [as tolerated] with walker / cane until follow-up. 3. Ice and elevate when necessary. Do not exceed 20 minutes per hour with ice pack. 4. Utilize compression sleeve until seen at first follow up appointment. 5. Pain meds and anticoagulants per prescription. 6. Pain medication has potential to cause constipation. Increase oral fluid and fiber intake. Contact primary care provider if you have not had a bowel movement within 48 hours after discharge. 7. No anti-inflammatory medication until discussed at first post operative visit, this including Motrin, Aleve, Mobic, Diclofenac. 8. Follow up in office at 2 weeks postop with eBny Raymundo PA-C 9. Follow up with your primary care doctor 7-10 days after discharge. 10. Contact [facility] with any questions, . Discharge Disposition: HOME WITH HOME HEALTH SERVICES
--- NOTE | 2018-01-08 19:04 | PN ---
PROGRESS NOTE DATE OF SERVICE: 01/08/2018 This 67-year-old woman was admitted after right knee arthroplasty, improved significantly. No chest pain. No palpitations. No fever. PHYSICAL EXAM: Alert and oriented x3. Pulse is 87. Blood pressure 124/77, respirations 18, temperature 98.4, pulse ox 97% on room air. HEENT: Conjunctivae normal. NECK: No jugular venous distention. No carotid bruit. CARDIOVASCULAR: S1, S2 muffled. RESPIRATORY: Breath sounds diminished in the bases. A few scattered rhonchi. No crackles. ABDOMEN: Soft nontender. NERVOUS SYSTEM: No focal deficits. Leg status post surgery. LABS: Reviewed. ASSESSMENT: 1. Status post right total knee joint arthroplasty. 2. Hyperlipidemia. 3. History of skin cancer. 4. History of hyperlipidemia. 5. History of degenerative joint disease. RECOMMENDATIONS AND DISCUSSION: Recommend to continue current medications, management and symptomatic treatment. I recommend resume the home medications. Follow closely with primary physician in the outpatient setting. Further recommendations to follow. MMODL / IJN: [id number] /
== END 2018-01-08 13:48 | disposition home health service (06) | DRG 470 ==
LOC: 2ORMAIN 12:34 → 3SUR 16:55
PROVIDERS: ADMIT Orthopaedic Surgery; ATTEND Orthopaedic Surgery
PROC: 0SRC0J9 Replacement of Right Knee Joint with Synthetic Substitute, Cemented, Open Approach (ICD-10-PCS; principal; 2018-01-06 14:30)
DX: M17.11 Unilateral primary osteoarthritis, right knee (principal); I10 Essential (primary) hypertension; E78.5 Hyperlipidemia, unspecified; Z85.828 Personal history of other malignant neoplasm of skin; Z79.82 Long term (current) use of aspirin; Z79.899 Other long term (current) drug therapy; Z79.1 Long term (current) use of non-steroidal anti-inflammatories (NSAID); Z87.442 Personal history of urinary calculi; Z88.1 Allergy status to other antibiotic agents; Z88.0 Allergy status to penicillin; Z88.2 Allergy status to sulfonamides; Z80.9 Family history of malignant neoplasm, unspecified; Z82.3 Family history of stroke
CPT/HCPCS: 85025; 88300

== ENCOUNTER → 2018-12-17 | Outpatient (CLI) | payer MEDICARE ==
--- NOTE | 2018-12-18 08:35 | MM ---
Reason for exam: screening (asymptomatic). Last mammogram was performed 1 year and 7 months ago. History: Patient is postmenopausal and history of other cancer. Family history of breast cancer in maternal aunt. Took hormonal contraceptives for 10 years. Took estrogen for 4 years 6 months. Took progesterone for 4 years 6 months. Physical Findings: A clinical breast exam by your physician is recommended on an annual basis and results should be correlated with mammographic findings. MG 3D Screening Mammo W/Cad Bilateral CC and MLO view(s) were taken. Prior study comparison: May 13, 2017, bilateral MG 3d screening mammo w/cad. May 03, 2016, bilateral MG screening mammo w CAD. The breast tissue is heterogeneously dense. This may lower the sensitivity of mammography. Stable benign calcifications. There is no discrete abnormality. No significant changes when compared with prior studies. ASSESSMENT: Benign, BI-RAD 2 RECOMMENDATION: Routine screening mammogram of both breasts in 1 year.
== END | disposition home or self-care (01) ==
LOC: RADMAMWWP 06:45
PROVIDERS: ATTEND Family Medicine
DX: Z12.31 Encounter for screening mammogram for malignant neoplasm of breast (principal)
CPT/HCPCS: 77063; 77067

== ENCOUNTER → 2019-10-15 | Outpatient (CLI) | payer MEDICARE ==
--- NOTE | 2019-10-28 09:28 | EM ---
EVENT MONITOR SEVEN DAY EVENT MONITOR: RESULTS: Event monitor shows: 1. Sinus rhythm. 2. Sinus tachycardia. 3. No arrhythmias. MMODL / IJN: [id number] /
== END | disposition home or self-care (01) ==
LOC: RADECHMAIN 11:32
PROVIDERS: ATTEND Family Medicine
DX: R00.2 Palpitations (principal); R00.0 Tachycardia, unspecified
CPT/HCPCS: 93270

== ENCOUNTER → 2020-01-25 | Outpatient (CLI) | payer MEDICARE ==
--- NOTE | 2020-01-26 08:58 | BD ---
EXAMINATION TYPE: Axial Bone Density DATE OF EXAM: 01/25/2020 COMPARISON: DEXA bone scan 2016 CLINICAL HISTORY: Postmenopausal female Height: 64.5 Weight: 221.7 FRAX RISK QUESTIONS: Alcohol (3 or more units per day): no Family History (Parent hip fracture): no Glucocorticoids (More than 3mos): no (Ex: prednisone, prednisolone, methylprednisolone, dexamethasone, and hydrocortisone). History of Fracture in Adulthood: yes Secondary Osteoporosis: 1. Type 1 Diabetes: no 2. Hyperthyroidism: no 3. Menopause before 45: no 4. Malnutrition: no 5. Chronic liver disease: no Rheumatoid Arthritis: no Current Tobacco Use: no RISK FACTORS HISTORY OF: Surgery to Spine/Hip(right/left)/Wrist (right/left): no Family History of Osteoporosis: no Active: yes Diet low in dairy products/other sources of calcium: yes Postmenopausal woman: age 49 Lost more than 2 inches in height since high school: yes MEDICATIONS: oxybutynin, simvastatin Additional History: EXAM MEASUREMENTS: Bone mineral densitometry was performed using the [employer] System. Bone mineral density as measured about the Lumbar spine is: ----- L1-L4(G/cm2): 1.463 T Score Values are as follows: ----- L2: 2.8 ----- L3: 2.1 ----- L4: 2.4 ----- L1-L4: 2.4 Bone mineral density has: increased 1.8 % since study of: 05.16.2017 Bone mineral density about the R hip (g/cm2): 0.758 Bone mineral density about the L hip (g/cm2): 0.727 T Score values are as follows: -----R Neck: -2.0 -----L Neck: -2.2 -----R Total: -1.0 -----L Total: -0.7 Bone mineral density has: decreased -4.5 % since study of: 05.16.2017 IMPRESSION: Osteopenia (T Score between -2.5 and -1) remains present. There remains slightly increased risk of fracture and the patient may be considered for treatment. Re-Screen 2-5 years. NOTE: T-SCORE=SD OF THE YOUNG ADULT MEAN.
--- NOTE | 2020-01-27 09:46 | MM ---
Reason for exam: screening (asymptomatic). Last mammogram was performed 1 year and 1 month ago. History: Patient is postmenopausal and history of other cancer. Family history of breast cancer in maternal aunt. Took hormonal contraceptives for 10 years. Took estrogen for 4 years 6 months. Took progesterone for 4 years 6 months. Physical Findings: A clinical breast exam by your physician is recommended on an annual basis and results should be correlated with mammographic findings. MG 3D Screening Mammo W/Cad Bilateral CC, MLO, and XCCL view(s) were taken. Prior study comparison: December 17, 2018, bilateral MG 3d screening mammo w/cad. May 13, 2017, bilateral MG 3d screening mammo w/cad. There are scattered fibroglandular densities. Scattered benign punctate calcifications. Oil cyst calcifications on the left. No significant changes when compared with prior studies. ASSESSMENT: Benign, BI-RAD 2 RECOMMENDATION: Routine screening mammogram of both breasts in 1 year.
== END | disposition home or self-care (01) ==
LOC: RADMAMWWP 15:29
PROVIDERS: ATTEND Family Medicine
DX: Z12.31 Encounter for screening mammogram for malignant neoplasm of breast (principal); M85.80 Other specified disorders of bone density and structure, unspecified site; Z78.0 Asymptomatic menopausal state
CPT/HCPCS: 77063; 77067; 77080

== ENCOUNTER → 2021-02-28 | Outpatient (CLI) | payer MEDICARE ==
--- NOTE | 2021-02-28 12:34 | MM ---
Reason for exam: screening (asymptomatic). Last mammogram was performed 1 year and 1 month ago. History: Patient is postmenopausal and history of other cancer. Family history of breast cancer in maternal aunt. Took hormonal contraceptives for 10 years. Took estrogen for 4 years 6 months. Took progesterone for 4 years 6 months. Physical Findings: A clinical breast exam by your physician is recommended on an annual basis and results should be correlated with mammographic findings. MG 3D Screening Mammo W/Cad Bilateral CC and MLO view(s) were taken. Prior study comparison: January 25, 2020, bilateral MG 3d screening mammo w/cad. December 17, 2018, bilateral MG 3d screening mammo w/cad. May 13, 2017, bilateral MG 3d screening mammo w/cad. There are scattered fibroglandular densities. There are benign appearing round calcifications bilaterally. There is no discrete abnormality. ASSESSMENT: Benign, BI-RAD 2 RECOMMENDATION: Routine screening mammogram of both breasts in 1 year.
== END | disposition home or self-care (01) ==
LOC: RADMAMWWP 08:38
PROVIDERS: ATTEND Obstetrics & Gynecology
DX: Z12.31 Encounter for screening mammogram for malignant neoplasm of breast (principal); Z80.3 Family history of malignant neoplasm of breast; Z78.0 Asymptomatic menopausal state
CPT/HCPCS: 77063; 77067

== ENCOUNTER → 2022-03-01 | Outpatient (CLI) | payer MEDICARE ==
--- NOTE | 2022-03-01 08:36 | BD ---
EXAMINATION TYPE: Axial Bone Density DATE OF EXAM: 03/01/2022 COMPARISON: NONE CLINICAL HISTORY: 71 years year old Female. ICD-10 CODE: M85.88 OTH DISRD OF BONE DENSITY Height: 5 FT 4 IN Weight: 225 FRAX RISK QUESTIONS: Alcohol (3 or more units per day): NO Family History (Parent hip fracture): NO Glucocorticoids (More than 3mos): NO (Ex: prednisone, prednisolone, methylprednisolone, dexamethasone, and hydrocortisone). History of Fracture in Adulthood: YES Secondary Osteoporosis: 1. Type 1 Diabetes: NO 2. Hyperthyroidism: NO 3. Menopause before 45: NO 4. Malnutrition: NO 5. Chronic liver disease: NO Rheumatoid Arthritis: NO Current Tobacco Use: NO RISK FACTORS HISTORY OF: Surgery to Spine/Hip(right/left)/Wrist (right/left): NO Family History of Osteoporosis: NO Active: YES Diet low in dairy products/other sources of calcium: NO Postmenopausal woman: YES Take estrogen and/or progesterone medications: NOT NOW Lost more than 2 inches in height since high school: NO Frequent falls: NO Poor Health: GOOD Hyperparathyroidism: NO Adrenal Insufficiency: NO MEDICATIONS: Additional Medications: SIMVASTATIN, OXY BUTIN, Additional History: EXAM MEASUREMENTS: Bone mineral densitometry was performed using the [employer] System. Bone mineral density as measured about the Lumbar spine is: ----- L1-L4(G/cm2): 1.496 T Score Values are as follows: ----- L1: 2.4 ----- L2: 2.7 ----- L3: 2.8 ----- L4: 2.5 ----- L1-L4: 2.6 Bone mineral density has: INCREASED 3.8 % since study of: 2017 Bone mineral density about the R hip (g/cm2): 0.748 Bone mineral density about the L hip (g/cm2): 0.748 T Score values are as follows: -----R Neck: -2.1 -----L Neck: -2.1 -----R Total: -0.9 -----L Total: -0.8 Bone mineral density has: DECREASED -4.5 % since study of: 2017 FRAX%s: The graph provided illustrates a 18.2 % chance for a major osteoporotic fx and a 3.9 % chance for the hips probability for fx in 10 years time. IMPRESSION: Normal (Values between +1 and -1 indicate normal bone mass). Consider repeating this study in 5 year s or sooner if there is some new clinical indication. NOTE: T-SCORE=SD OF THE YOUNG ADULT MEAN.
--- NOTE | 2022-03-01 10:22 | MM ---
Reason for Exam: Screening (asymptomatic). Last screening mammogram was performed 12 month(s) ago. Patient History: Menarche at age 12. First Full-Term at age 20. Postmenopausal. Other cancer. Estrogen for 4 years, 6 months, until age 49. Progesterone for 4 years, 6 months, until age 49. Patient used Hormonal Contraceptives for 10 years. Maternal aunt had breast cancer, age 55. Risk Values: Ann 5 year model risk: 1.6%. NCI Lifetime model risk: 4.1%. Prior Study Comparison: 12/17/2018 Bilateral Screening Mammogram, [facility]. 01/25/2020 Bilateral Screening Mammogram, [facility]. 02/28/2021 Bilateral Screening Mammogram, [facility]. Tissue Density: There are scattered fibroglandular densities. Findings: Analyzed By CAD. There is no suspicious group of microcalcifications or new suspicious mass in either breast. Benign-appearing round calcifications within both breasts. No significant change from prior exams. Overall Assessment: Benign, BI-RAD 2 Management: Screening Mammogram of both breasts in 1 year. A clinical breast exam by your physician is recommended on an annual basis and results should be correlated with mammographic findings. Electronically signed and approved by: James Zhang D.O.
== END | disposition home or self-care (01) ==
LOC: RADMAMWWP 06:46
PROVIDERS: ATTEND Obstetrics & Gynecology
DX: Z12.31 Encounter for screening mammogram for malignant neoplasm of breast (principal); M85.89 Other specified disorders of bone density and structure, multiple sites; Z78.0 Asymptomatic menopausal state; Z80.3 Family history of malignant neoplasm of breast
CPT/HCPCS: 77063; 77067; 77080

== ENCOUNTER → 2023-03-12 | Outpatient (CLI) | payer MEDICARE ==
--- NOTE | 2023-03-12 09:59 | MM ---
Reason for Exam: Screening (asymptomatic). Last screening mammogram was performed 12 month(s) ago. Patient History: Menarche at age 12. First Full-Term at age 20. Postmenopausal. Patient has history of breast feeding. Estrogen for 4 years, 6 months, until age 49. Progesterone for 4 years, 6 months, until age 49. Patient used Hormonal Contraceptives for 10 years. Maternal aunt had breast cancer, age 55. Risk Values: Ann 5 year model risk: 1.6%. NCI Lifetime model risk: 3.9%. Prior Study Comparison: 01/25/2020 Bilateral Screening Mammogram, [facility]. 02/28/2021 Bilateral Screening Mammogram, [facility]. 03/01/2022 Bilateral MG 3D screening mammo w/cad, [facility]. Tissue Density: There are scattered fibroglandular densities. Findings: Analyzed By CAD. Overall pattern appears symmetrical There is a spiculated nodular type density within the lower outer aspect right breast. This measures 1 cm located 8 cm from the nipple. Additional workup is recommended. There are scattered benign punctate calcifications present bilaterally, stable from comparison. Overall Assessment: Incomplete: need additional imaging evaluation, BI-RAD 0 Management: Diagnostic Mammogram of the right breast. A negative mammogram report should not preclude additional follow up of suspicious palpable abnormalities. Patient should continue monthly self breast exam. A clinical breast exam by your physician is recommended on an annual basis and results should be correlated with mammographic findings. Electronically signed and approved by: Brandon Hagan D.O. Radiologis
--- NOTE | 2023-03-12 10:00 | MM ---
Reason for Exam: Additional evaluation requested from abnormal screening. Last screening mammogram was performed 12 month(s) ago. Patient History: Menarche at age 12. First Full-Term at age 20. Postmenopausal. Patient has history of breast feeding. Estrogen for 4 years, 6 months, until age 49. Progesterone for 4 years, 6 months, until age 49. Patient used Hormonal Contraceptives for 10 years. Maternal aunt had breast cancer, age 55. Risk Values: Ann 5 year model risk: 1.6%. NCI Lifetime model risk: 3.9%. Prior Study Comparison: 05/13/2017 Bilateral Screening Mammogram, [facility]. 12/17/2018 Bilateral Screening Mammogram, [facility]. 01/25/2020 Bilateral Screening Mammogram, [facility]. 02/28/2021 Bilateral Screening Mammogram, [facility]. 03/01/2022 Bilateral MG 3D screening mammo w/cad, [facility]. Tissue Density: Right: There are scattered fibroglandular densities. Findings: Analyzed By CAD. Under compression there is a persistent spiculated density in the lower outer aspect right breast 8 cm nipple. Ultrasound is recommended. Overall Assessment: Incomplete: need additional imaging evaluation, BI-RAD 0 Management: Diagnostic Breast Ultrasound of the right breast. . Results were given to the patient verbally at the time of exam. Patient should continue monthly self-breast exams. A clinical breast exam by your physician is recommended on an annual basis. This exam should not preclude additional follow-up of suspicious palpable abnormalities. Note on Ann scores and lifetime risk: 1. A Ann score greater than 3% is considered moderate risk. If this is the case, consider specialist referral to assess eligibility for a risk reducing agent. 2. If overall lifetime risk for the development of breast cancer is 20% or higher, the patient may qualify for future screening with alternating mammogram and breast MRI. Electronically signed and approved by: Brandon Hagan D.O. Radiologis
--- NOTE | 2023-03-12 10:31 | USB ---
Patient History: Menarche at age 12. First Full-Term at age 20. Postmenopausal. Patient has history of breast feeding. Estrogen for 4 years, 6 months, until age 49. Progesterone for 4 years, 6 months, until age 49. Patient used Hormonal Contraceptives for 10 years. Maternal aunt had breast cancer, age 55. Risk Values: Ann 5 year model risk: 1.6%. NCI Lifetime model risk: 3.9%. Technique: Method: Targeted. Prior Study Comparison: 01/25/2020 Bilateral Screening Mammogram, [facility]. 02/28/2021 Bilateral Screening Mammogram, [facility]. 03/01/2022 Bilateral MG 3D screening mammo w/cad, [facility]. Findings: The lower outer quadrant of the right breast, the axilla of the right breast and the retroareolar of the right breast were scanned. There is a hypoechoic area with irregular margins which appears to be taller than wide measuring 0.7 x 1.0 x 1.2 cm. This is at the 8:00 position 10 cm from the nipple. Axillary tails clear. No abnormal adenopathy is evident. Note is made of the duct in the retroareolar region. Overall Assessment: Suspicious, BI-RAD 4 Management: Ultrasound Core Biopsy of the right breast. A clinical breast exam by your physician is recommended on an annual basis and results should be correlated with mammographic findings. This exam should not preclude additional follow-up of suspicious palpable abnormalities. Results were given to the patient verbally at the time of exam. Electronically signed and approved by: Brandon Hagan D.O. Radiologis
== END | disposition home or self-care (01) ==
LOC: RADMAMWWP 08:50
PROVIDERS: ATTEND Family Medicine
DX: Z12.31 Encounter for screening mammogram for malignant neoplasm of breast (principal); R92.321 Mammographic fibroglandular density, right breast; Z78.0 Asymptomatic menopausal state; Z80.3 Family history of malignant neoplasm of breast
CPT/HCPCS: 77067; 77065; 77063; 76642; G0279; 77061

== ENCOUNTER → 2023-03-20 | Day surgery (SDC) | payer MEDICARE ==
--- NOTE | 2023-03-26 09:05 | MM ---
Reason for Exam: Post Procedure Mammogram. Last screening mammogram was performed less than 1 month ago. Patient History: Menarche at age 12. First Full-Term at age 20. Postmenopausal. Patient has history of breast feeding. Estrogen for 4 years, 6 months, until age 49. Progesterone for 4 years, 6 months, until age 49. Patient used Hormonal Contraceptives for 10 years. Maternal aunt had breast cancer, age 55. Risk Values: Ann 5 year model risk: 1.6%. NCI Lifetime model risk: 3.9%. Prior Study Comparison: 03/01/2022 Bilateral MG 3D screening mammo w/cad, [facility]. 03/12/2023 Right MG 3D work up w/cad RT, [facility]. 03/12/2023 Bilateral MG 3D screening mammo w/cad, [facility]. Tissue Density: Right: There are scattered fibroglandular densities. Pathology Description: Location: 8 o'clock. Marker Left Behind. Needle Type: Mammotome Cores: 5 Skin Nicks: 1 Gauge: 13 The procedure of ultrasound guided core biopsy was explained to the patient. Benefits, alternatives, and risks were discussed. An informed consent was then obtained. A timeout was performed. The patient was placed in supine positioning for imaging and for the procedure. The overlying skin was prepped and draped in usual sterile fashion. Lidocaine was used as anesthetic into the skin and subcutaneous tissue up to area of concern in the right breast. A small skin eliana was made with surgical scalpel. Under ultrasound guidance, a 12-gauge vacuum assisted biopsy gun device was used to obtain 5 core samples. A biopsy clip was left in lesion. Hydromark core marker wing clip was placed. The patient tolerated the procedure well without any immediate complication. The patient was kept in the radiology department for short stay after the procedure and then discharged home in stable condition. Postprocedure mammogram: The patient was transferred to mammography for physician ordered post procedure mammogram for clip placement verification. Impression: Successful ultrasound guided core biopsy of area of concern in the right breast, full pathology results to follow. Recommendations: 1. Recommendations are pending pathology results. Pathology Results: Result: Malignant, Invasive ductal carcinoma. 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 See Surgical Pathology Cancer Case Summary and Comment. Overall Assessment: Malignant Assessment: MG diagnostic mammo RT wo CAD - Right: Known biopsy proven malignancy, BI-RAD 6. Management: Surgical Consultation of the right breast. Electronically signed and approved by: Brandon Hagan D.O. Radiologis
== END ==
LOC: RADUSWWP 09:47
PROVIDERS: ATTEND Surgery
DX: D05.11 Intraductal carcinoma in situ of right breast (principal); Z17.0 Estrogen receptor positive status [ER+]; Z78.0 Asymptomatic menopausal state; Z92.0 Personal history of contraception; Z80.3 Family history of malignant neoplasm of breast
CPT/HCPCS: 88305; 88342; 88341; 77065; 19083; A4648

== ENCOUNTER 2023-04-22 06:41 | Day surgery (SDC) | payer MEDICARE ==
[~2023-04-22 06:41] MED LIST changes: -ACETAMINOPHEN TAB 500 MG TAB PO ONE; +ACETAMINOPHEN TAB 500 MG TAB PO PRN; +DEXAMETHASONE SOD PHOSPHATE 4 MG/ML 1 ML VIAL IV ONE; +HEPARIN SODIUM,PORCINE/PF 5,000 UNIT/0.5 ML SYRINGE SQ PRN; +LACTATED RINGERS 1,000 ML IV SCH; +LIDOCAINE 1% (10MG/ML) FOR IV START INTRADERMA PRN; -LIDOCAINE 1% 20 ML VIAL (10MG/ML) FOR IV START INTRADERMA PRN; -MELOXICAM 7.5 MG TAB PO ONE; -TRANEXAMIC ACID 1,000 MG in SODIUM CHLORIDE 0.9% 50 ML IVPB ONE; -ceFAZolin IN SWFI 2 GM/20 ML SYRINGE IVP ONE; +droPERidol 5 MG/2 ML VIAL IVP PRN
[2023-04-22 08:25] LABS: Basophils # (A) 0.1 k/uL (0-0.2); Basophils % (A) 1 %; Eosinophils # (A) 0.1 k/uL (0-0.7); Eosinophils % (A) 3 %; HGB 13.8 gm/dL (11.4-16.0); Lymphocytes # (A) 1.3 k/uL (1.0-4.8); Lymphocytes % (A) 23 %; MCH 31.3 pg (25.0-35.0); MCHC 33.8 g/dL (31.0-37.0); MCV 92.6 fL (80.0-100.0); Mean Platelet Volume 7.9; Monocytes # (A) 0.3 k/uL (0-1.0); Monocytes % (A) 6 %; Neutrophils # (A) 3.5 k/uL (1.3-7.7); Neutrophils % (A) 65 %; Platelet Count 240 k/uL (150-450); RBC 4.43 m/uL (3.80-5.40); RDW 13.4 % (11.5-15.5); WBC 5.4 k/uL (3.8-10.6)
[2023-04-22 08:50] LABS: ALT 26 U/L (4-34); AST 25 U/L (14-36); African American GFR (CKD) >90 (>60 ml/min/1.73 sqM); Albumin 4.1 g/dL (3.5-5.0); Alkaline Phosphatase 46 U/L (38-126); Anion Gap 7 mmol/L; Blood Urea Nitrogen 19 mg/dL (7-17); Calcium 9.4 mg/dL (8.4-10.2); Carbon Dioxide 28 mmol/L (22-30); Chloride 104 mmol/L (98-107); Glucose 104 mg/dL (74-99); Non-African American GFR(CKD) 86 (>60 ml/min/1.73 sqM); Sodium 139 mmol/L (137-145); Total Bilirubin 0.6 mg/dL (0.2-1.3); Total Protein 6.9 g/dL (6.3-8.2)
[2023-04-22] MEDS ORDERED: LIDOCAINE 1% INJ 10MG/ML (20 ML MDV) SQ ONE (09:12)
[2023-04-22] MEDS ORDERED: BUPIVACAINE (PF) 0.25% 30 ML VIAL SQ ONE ×2 (09:55→10:33)
[2023-04-22] MEDS ORDERED: fentaNYL (PF) 50 MCG/ML 2 ML AMP ONE (09:57)
[2023-04-22] MEDS ORDERED: PROPOFOL 10 MG/ML 20 ML VIAL IV ONE (09:57)
[2023-04-22] MEDS ORDERED: LIDOCAINE 1% INJ 10MG/ML (20 ML MDV) ONE (09:57)
[2023-04-22] MEDS ORDERED: ePHEDrine 50 MG/ML 1 ML VIAL ONE (09:57)
[2023-04-22] MEDS ORDERED: MIDAZOLAM 2 MG/2 ML VIAL ONE (09:57)
[2023-04-22 10:57] VITALS: TEMP 97
[2023-04-22] MEDS ORDERED: traMADol 50 MG TAB PO PRN (11:08)
[2023-04-22] MEDS ORDERED: NALOXONE 0.4 MG/ML 1 ML VIAL IV PRN (11:08)
[2023-04-22 11:28] VITALS: RESP 16
[2023-04-22 11:58] VITALS: BP 145/87; PULSE 80
--- NOTE | 2023-04-23 15:32 | P.OP ---
Date of Procedure: 04/23/23 Procedure(s) Performed: PREOPERATIVE DIAGNOSIS: Right breast cancer POSTOPERATIVE DIAGNOSIS: Same PROCEDURE: Right Breast wire localization lumpectomy SURGEON: Christi EBL: Minimal ANESTHESIA: General COMPLICATIONS: None OPERATIVE PROCEDURE: Patient was placed on the operating room table in the supine position. The wire entrance site was then addressed. This was present at the 8:00 location. A curvilinear incision was made slightly medial to the wire entrance site. The subcutaneous tissues were dissected until the wire was identified. I followed the wire down into the breast tissue. An adequate lumpectomy specimen then took place around the wire. Margins of 1.5-2 cm worth attempted to be achieved. Palpation of the specimen suggested that the lateral margin was somewhat close. I took an additional margin lateral margin and this was painted the appropriate color on the new margin side. The initial specimen was also painted the appropriate 6 colors. Clips were used to identify the lumpectomy cavity. The clip was confirmed to be within the lumpectomy specimen by radiology. The subcutaneous tissues were closed using 3-0 Vicryl sutures. The skin was closed using a running 4-0 Monocryl stitch. Skin glue was then applied. DISPOSITION: Stable to recovery room
== END 2023-04-22 12:33 | disposition home or self-care (01) ==
LOC: OR 06:41
PROVIDERS: ATTEND Surgery
DX: C50.911 Malignant neoplasm of unspecified site of right female breast (principal); F41.9 Anxiety disorder, unspecified; K21.9 Gastro-esophageal reflux disease without esophagitis; Z88.1 Allergy status to other antibiotic agents; Z88.2 Allergy status to sulfonamides; Z88.0 Allergy status to penicillin; Z98.51 Tubal ligation status; Z96.652 Presence of left artificial knee joint; Z98.890 Other specified postprocedural states; Z79.83 Long term (current) use of bisphosphonates; Z79.899 Other long term (current) drug therapy
CPT/HCPCS: 19301; 80053; 85025; 77065; 76098; 19285; C1819; J2250; J1100; J0690; J2405; J2001; J3010; J2704; J1644; J0665; 88307

== ENCOUNTER → 2023-10-09 | Outpatient (CLI) | payer MEDICARE ==
--- NOTE | 2023-10-09 09:59 | MM ---
Reason for Exam: Hx of breast cancer, conservation therapy. Last screening mammogram was performed 7 month(s) ago. Patient History: Menarche at age 12. First Full-Term at age 20. Postmenopausal. Patient has history of breast feeding. Breast cancer, right, age 72. Breast cancer, right, age 73. Estrogen for 4 years, 6 months, until age 49. Progesterone for 4 years, 6 months, until age 49. Patient used Hormonal Contraceptives for 10 years. 04/22/2023, Lumpectomy on the Right side. 04/22/2023, Malignant US breast localization RT on the right side. 03/20/2023, Malignant US biopsy breast VAD RT on the right side. Maternal aunt had breast cancer, age 55. Prior Study Comparison: 02/28/2021 Bilateral Screening Mammogram, [facility]. 03/01/2022 Bilateral MG 3D screening mammo w/cad, [facility]. 03/12/2023 Right MG 3D work up w/cad RT, [facility]. 03/12/2023 Right US breast workup limited RT, [facility]. 03/12/2023 Bilateral MG 3D screening mammo w/cad, [facility]. 03/20/2023 Right MG diagnostic mammo RT wo CAD, [facility]. 04/22/2023 Right MG diagnostic mammo RT wo CAD, [facility]. Tissue Density: There are scattered areas of fibroglandular density. Findings: Analyzed By CAD. Postsurgical and posttreatment changes right breast. A few punctate calcifications are redemonstrated along with a benign calcification on the left. Otherwise, no significant change. Overall Assessment: Probably benign, BI-RAD 3 Management: Diagnostic Mammogram of the right breast in 6 months. To assess for any evolving posttreatment changes. Further clinical assessment for the patient's palpable site along the upper abdomen. Results were given to the patient verbally at the time of exam. Patient should continue monthly self-breast exams. A clinical breast exam by your physician is recommended on an annual basis. This exam should not preclude additional follow-up of suspicious palpable abnormalities. Electronically signed and approved by: Jesús Francis M.D. Radiologist
== END | disposition home or self-care (01) ==
LOC: RADMAMWWP 09:17
PROVIDERS: ATTEND Surgery
DX: C50.911 Malignant neoplasm of unspecified site of right female breast (principal); Z85.3 Personal history of malignant neoplasm of breast; Z78.0 Asymptomatic menopausal state; Z80.3 Family history of malignant neoplasm of breast
CPT/HCPCS: 77066; G0279; 77062

== ENCOUNTER 2023-11-26 08:28 | Day surgery (SDC) | payer MEDICARE ==
[~2023-11-26 08:28] MED LIST changes: -ACETAMINOPHEN TAB 500 MG TAB PO PRN; +ALPRAZolam 0.25 MG TAB PO PRN; +ALPRAZolam 0.5 MG TAB PO PRN; +ASPIRIN 325 MG TAB PO STA; -DEXAMETHASONE SOD PHOSPHATE 4 MG/ML 1 ML VIAL IV ONE; -HEPARIN SODIUM,PORCINE/PF 5,000 UNIT/0.5 ML SYRINGE SQ PRN; -HYDROmorphone 0.5 MG/0.5 ML SYRINGE IVP PRN; -LACTATED RINGERS 1,000 ML IV SCH; -LIDOCAINE 1% (10MG/ML) FOR IV START INTRADERMA PRN; +NITROGLYCERIN SL TABS 0.4 MG TAB SUBLINGUAL PRN; -ONDANSETRON 4 MG/2 ML VIAL IVP ONE; -droPERidol 5 MG/2 ML VIAL IVP PRN
[2023-11-26] MEDS: SODIUM CHLORIDE 0.9% 1,000 ML in EMPTY BAG 1 BAG IV SCH (09:01)
[2023-11-26] MEDS: IV FLUID CONTINUATION 1,000 ML IV ONE (09:02)
[2023-11-26 09:04] VITALS: RESP 18; TEMP 98
[2023-11-26] MEDS: METOPROLOL TARTRATE 25 MG TAB PO STA (09:07)
[2023-11-26] MEDS ORDERED: HEPARIN SODIUM 1,000 UN/ML (10ML VL) ONE (09:39)
[2023-11-26] MEDS ORDERED: fentaNYL (PF) 50 MCG/ML 2 ML AMP ONE (09:39)
[2023-11-26] MEDS: fentaNYL (PF) 50 MCG/ML 2 ML AMP IVP ONE (10:00)
[2023-11-26] MEDS: MIDAZOLAM 2 MG/2 ML VIAL IVP ONE (10:02)
[2023-11-26] MEDS: LIDOCAINE 1% INJ 10MG/ML (20 ML MDV) SQ ONE (10:03)
[2023-11-26] MEDS: VERAPAMIL SYRINGE (5 MG/10 ML) INTRAARTER ONE (10:05)
[2023-11-26] MEDS: HEPARIN SODIUM 1,000 UN/ML (10ML VL) IVP ONE ×3 (10:10→10:15)
[2023-11-26] MEDS ORDERED: CLOPIDOGREL 75 MG TAB ONE (10:20)
[2023-11-26] MEDS: CLOPIDOGREL 75 MG TAB PO ONE (10:21)
[2023-11-26] MEDS: NITROGLYCERIN 1000MCG/10ML SYRINGE INTRACORON ONE (10:31)
[2023-11-26] MEDS: IOPAMIDOL-370 100ML BTL INJ ONE ×2 (10:32→10:47)
[2023-11-26] MEDS ORDERED: ATROPINE SULFATE 0.1 MG/ML 10ML SYRINGE IV PRN (10:57)
[2023-11-26] MEDS ORDERED: NITROGLYCERIN SL TABS 0.4 MG TAB SUBLINGUAL PRN (10:57)
[2023-11-26] MEDS ORDERED: RX INFO: IV CONTRAST WAS GIVEN 1 EACH MISC MISCELLANE PRN (10:57)
[2023-11-26] MEDS ORDERED: ZOLPIDEM 5 MG TAB PO PRN (10:57)
[2023-11-26] MEDS ORDERED: MAG HYDROX/AL HYDROX/SIMETH 30 ML CUP PO PRN (10:57)
[2023-11-26] MEDS ORDERED: SODIUM CHLORIDE 0.9% 1,000 ML in EMPTY BAG 1 BAG IV SCH (11:00)
--- NOTE | 2023-11-26 11:09 | P.CARDCATH ---
Date of Procedure: 11/26/23 Description of Procedure: Cardiac Catheterization: The patient is a 73-year-old female with a known history of hyperlipidemia who has been complaining of dyspnea on exertion and had an abnormal MPI. Recommendations were made regarding cardiac catheterization, the risks and the complications were discussed with the patient who is in full understanding and agreement. Procedure Description: Patient was brought to geochemical laboratory technician in fasting semi-sedated state after receiving Fentanyl and Benadryl achieiving moderate conscious sedated state. Using Xylocaine Anesthesia and modified Seldinger technique, a 6-Salvadorean sheath was introduced in the right radial artery . Subsequently, selective coronary angiography was performed using a 5-Salvadorean 3.5 bend Nancy catheter. Multiple views of the coronary artery including hemiaxial views were obtained. The right Nancy catheter was used to cross the aortic valve and LVEDP was calculated. PCI: After removing the catheters a 6 Salvadorean FR 4 guiding catheter was introduced into the system and after cannulating the right coronary ostium a 0.014 BMW J- wire was positioned in the distal RCA. Subsequently an Bike HUD IVUS catheter was introduced and images were obtained and revealed mild calcification with a distal lumen measuring between 4.2 and 4.5 mm in diameter. After removing the catheter a 4.0 x 23 mm Xience jose point stent was advanced and deployed at 16 sharad, after removing the catheter repeat IVUS imaging was obtained and subsequently a 4.5 x 15 mm NC trek balloon was advanced and multiple inflation up to 12 sharad were done. After removing the wire images were obtained and revealed stable successful stenting. Following that, catheter and sheath were removed. Hemostasis was obtained with deployment of vascular band . There was no immediate complication. Patient was returned to room in stable condition. Of note, the patient received a total of 7000 units of intravenous heparin as well as intra-arterial verapamil. She received an oral loading dose of clopidogrel. Her ACT was followed. She had EKG changes and chest discomfort that resolved at the end of the procedure. Findings: Fluoroscopy: Calcifications of the coronary arteries was noted. Left main: This is a large size vessel, bifurcating into LAD and left circumflex, left main has no significant obstructive disease LAD: This is a large size vessel, reaching to the apex with a wraparound apex segment tortuous in the midsegment. Gives rise to 2 diagonal branch. The first 1 is small in caliber and has a 90% stenosis at the ostium the vessel is small in caliber. The rest of the vessels has no evidence of high-grade stenosis Left circumflex: This is a large nondominant vessel giving rise to a large obtuse marginal branch proximally. The obtuse marginal branch has a 20 to 30% plaque proximally the rest of the vessel has no high-grade stenosis RCA: This is a large dominant vessel, bifurcating distally to PDA and PLV. The proximal RCA has an eccentric 80% stenosis, the rest of the vessel has no high- grade stenosis Left Ventriculogram: Not performed Hemodynamics: There was no gradient across aortic valve, LVEDP was 12-16 mmHg Conclusion: 1. Severe stenosis in the proximal RCA 2. Severe stenosis in the small ostial first diagonal branch 3. Mild disease in the left circumflex obtuse marginal branch 1 4. Successful stenting of the proximal RCA with reduction of stenosis from 80% to less than 5% with IVUS imaging and DARREN-3 flow Recommendations: The patient will continue on aspirin and clopidogrel for 6 months without any interruption in addition to aggressive coronary risks modifications, maintaining her LDL to less than 70 mg/dL. The findings and the recommendations were discussed with the patient and the family and they were in full understanding and agreement. Duration of sedation is 42 minutes.
[2023-11-26] MEDS: SODIUM CHLORIDE 0.9% 500 ML 500 ML IV ONE (14:30)
[2023-11-26 16:23] VITALS: BP 138/64; PULSE 64
[2023-11-26] MEDS ORDERED: METOPROLOL TARTRATE 25 MG TAB PO SCH (21:00)
[2023-11-26] MEDS ORDERED: NON FORMULARY DRUG (Simvastatin [Zocor] 80 MG Tablet) PO SCH (21:00)
[2023-11-27] MEDS ORDERED: OXYBUTYNIN 15 MG TAB.ER.24 PO SCH (09:00)
[2023-11-27] MEDS ORDERED: ASPIRIN 81 MG PO SCH (09:00)
[2023-11-27] MEDS ORDERED: CLOPIDOGREL 75 MG TAB PO SCH (09:00)
== END 2023-11-26 15:40 | disposition home or self-care (01) ==
LOC: CATHCVL 08:28
PROVIDERS: ATTEND Internal Medicine Interventional Cardiology
DX: I34.0 Nonrheumatic mitral (valve) insufficiency (principal); I25.10 Atherosclerotic heart disease of native coronary artery without angina pectoris; E78.5 Hyperlipidemia, unspecified; Z88.0 Allergy status to penicillin; Z88.1 Allergy status to other antibiotic agents; Z88.2 Allergy status to sulfonamides; Z87.891 Personal history of nicotine dependence; Z79.82 Long term (current) use of aspirin; Z79.899 Other long term (current) drug therapy
CPT/HCPCS: 92978; 93458; C9600; J2250; J2001; J3010; J1644; Q9967; J2305

== ENCOUNTER → 2024-02-12 | Outpatient (CLI) | payer MEDICARE ==
[2024-02-12 12:33] LABS: African American GFR (CKD) >90 (>60 ml/min/1.73 sqM); Blood Urea Nitrogen 19 mg/dL (7-17); Non-African American GFR(CKD) 85 (>60 ml/min/1.73 sqM)
--- NOTE | 2024-02-12 15:03 | CT ---
EXAMINATION TYPE: CT brain wo/w con DATE OF EXAM: 02/12/2024 COMPARISON: 02/25/2017 HISTORY: 73-year-old female dizziness, confusion and off balance, R42 DIZZINESS AND GIDDINESS H81.810 TECHNIQUE: CT of the brain before and after administration of 100 mL Isovue-300 IV contrast. Coronal and sagittal reconstructions performed. CT DLP: 2407 mGycm Automated exposure control for dose reduction was used. FINDINGS: There is no evidence of acute intracranial hemorrhage, acute ischemic changes, mass, mass-effect, or extra-axial fluid collection. There is no effacement of cerebral sulci or basal subarachnoid cister ns. There is no hydrocephalus. There is no midline shift. Almaraz-white matter distinction is preserv ed. No enhancing intracranial lesions. Dural venous sinuses are patent. There is slight rightward nasal septal deviation. Paranasal sinuses and mastoid air cells well pneuma tized. IMPRESSION: No acute intracranial abnormality or enhancing lesion seen. [facility], , 02/12/2024 3:01 PM
== END | disposition home or self-care (01) ==
LOC: RADCTMAIN 11:21
PROVIDERS: ATTEND Family Medicine
DX: Z01.812 Encounter for preprocedural laboratory examination (principal); J34.89 Other specified disorders of nose and nasal sinuses; J34.2 Deviated nasal septum; R42 Dizziness and giddiness
CPT/HCPCS: 82565; 84520; 70470; 36415; Q9967

== ENCOUNTER → 2024-04-15 | Outpatient (CLI) | payer MEDICARE ==
--- NOTE | 2024-04-15 10:28 | BD ---
EXAMINATION TYPE: Axial Bone Density DATE OF EXAM: 04/15/2024 CLINICAL HISTORY: 74 years old Female. ICD-10 CODE: C50.511 BREAST CANCER , Additional History: Height: 64 Weight: 206.7 FRAX RISK QUESTIONS: Alcohol (3 or more units per day): no Family History (Parent hip fracture): no Glucocorticoids (More than 3mos): no (Ex: prednisone, prednisolone, methylprednisolone, dexamethasone, and hydrocortisone). History of Fracture in Adulthood: elbow Secondary Osteoporosis: 1. Type 1 Diabetes: no 2. Hyperthyroidism: no 3. Menopause before 45: no 4. Malnutrition: no 5. Chronic liver disease: no Rheumatoid Arthritis: no Current Tobacco Use: no RISK FACTORS HISTORY OF: Hip Fracture (Right/Left): no Spine Fracture: no History of Wrist Fracture: no Surgery to Spine/Hip(right/left)/Wrist (right/left): no MEDICATIONS: Thyroid Medications: no Osteoporosis Medications: no EXAM MEASUREMENTS: Bone mineral densitometry was performed using the t-Art System. Bone mineral density as measured about the Lumbar spine is: ----- L1-L4(G/cm2): 1.464 T Score Values are as follows: ----- L1: 2.8 ----- L2: 2.9 ----- L3: 2.3 ----- L4: 1.6 ----- L1-L4: 2.4 Z Score Values are as follows: ----- L1: 3.6 ----- L2: 3.7 ----- L3: 3.1 ----- L4: 2.4 ----- L1-L4: 3.2 Bone mineral density has: decreased-2.1 % since study of: 03/01/2022 Bone mineral density about the R hip (g/cm2): 0.874 Bone mineral density about the L hip (g/cm2): 0.887 T Score values are as follows: -----R Neck: -1.8 -----L Neck: -2.2 -----R Total: -1.1 -----L Total: -1.0 Z Score values are as follows: -----R Neck: -0.5 -----L Neck: -0.9 -----R Total: 0.0 -----L Total: 0.1 Bone mineral density has: decreased -2.5 % since study of: 03/01/2022 FRAX%s: The graph provided illustrates a 19.8% chance for a major osteoporotic fx and a 5.0% chance f or the hips probability for fx in 10 years time. IMPRESSION: Normal (Values between +1 and -1 indicate normal bone mass). Consider repeating this study in 5 year s or sooner if there is some new clinical indication. NOTE: T-SCORE=SD OF THE YOUNG ADULT MEAN. [facility], , 04/15/2024 10:26 AM
== END | disposition home or self-care (01) ==
LOC: RADBDWWP 09:08
PROVIDERS: ATTEND Internal Medicine Hematology & Oncology
DX: C50.511 Malignant neoplasm of lower-outer quadrant of right female breast (principal); C44.612 Basal cell carcinoma of skin of right upper limb, including shoulder; E78.5 Hyperlipidemia, unspecified; Z71.3 Dietary counseling and surveillance
CPT/HCPCS: 77080

== ENCOUNTER → 2024-04-15 | Outpatient (CLI) | payer MEDICARE ==
--- NOTE | 2024-04-15 09:28 | MM ---
Reason for Exam: Follow-up at short interval from prior study. Last screening mammogram was performed 6 month(s) ago. Patient History: Menarche at age 12. First Full-Term at age 20. Postmenopausal. Patient has history of breast feeding. Breast cancer, right, age 72. Breast cancer, right, age 73. Estrogen for 4 years, 6 months, until age 49. Progesterone for 4 years, 6 months, until age 49. Patient used Hormonal Contraceptives for 10 years. 04/22/2023, Lumpectomy on the Right side. 04/22/2023, Malignant US breast localization RT on the right side. 03/20/2023, Malignant US biopsy breast VAD RT on the right side. Maternal aunt had breast cancer, age 55. Prior Study Comparison: 03/20/2023 Right MG diagnostic mammo RT wo CAD, [facility]. 04/22/2023 Right MG diagnostic mammo RT wo CAD, [facility]. 10/09/2023 Bilateral MG 3D diag mammo w/cad [facility], [facility]. Tissue Density: Right: The breasts are heterogeneously dense, which may obscure small masses. Findings: Analyzed By CAD. Postoperative changes right breast. No evidence for new mass or suspicious microcalcifications. Overall Assessment: Benign, BI-RAD 2 Management: Diagnostic Mammogram of both breasts in 6 months. . Results were given to the patient verbally at the time of exam. Patient should continue monthly self-breast exams. A clinical breast exam by your physician is recommended on an annual basis. This exam should not preclude additional follow-up of suspicious palpable abnormalities. Note on Ann scores and lifetime risk: 1. A Ann score greater than 3% is considered moderate risk. If this is the case, consider specialist referral to assess eligibility for a risk reducing agent. 2. If overall lifetime risk for the development of breast cancer is 20% or higher, the patient may qualify for future screening with alternating mammogram and breast MRI. [facility], , 04/15/2024 9:25 AM. Electronically signed and approved by: Galdino Garnica M.D. Radiologis
== END | disposition home or self-care (01) ==
LOC: RADMAMWWP 09:02
PROVIDERS: ATTEND Surgery
DX: R92.8 Other abnormal and inconclusive findings on diagnostic imaging of breast (principal); Z78.0 Asymptomatic menopausal state; Z80.3 Family history of malignant neoplasm of breast; R92.331 Mammographic heterogeneous density, right breast
CPT/HCPCS: 77065; G0279; 77061

== ENCOUNTER → 2024-10-08 | Outpatient (CLI) | payer MEDICARE ==
--- NOTE | 2024-10-08 10:26 | MM ---
Reason for Exam: Screening (asymptomatic). Last screening mammogram was performed 12 month(s) ago. Patient History: Menarche at age 12. First Full-Term at age 20. Postmenopausal. Patient has history of breast feeding. Breast cancer, right, age 72. Breast cancer, right, age 73. Estrogen for 4 years, 6 months, until age 49. Progesterone for 4 years, 6 months, until age 49. Patient used Hormonal Contraceptives for 10 years. 04/22/2023, Lumpectomy on the Right side. 04/22/2023, Malignant US breast localization RT on the right side. 03/20/2023, Malignant US biopsy breast VAD RT on the right side. Maternal aunt had breast cancer, age 55. Prior Study Comparison: 04/22/2023 Right MG diagnostic mammo RT wo CAD, [facility]. 10/09/2023 Bilateral MG 3D diag mammo w/cad [facility], [facility]. 04/15/2024 Right MG 3D diag mammo w/cad RT, [facility]. Tissue Density: There are scattered areas of fibroglandular density. Findings: Analyzed By CAD. Surgical clips in the right breast are redemonstrated. There are scattered small benign-appearing round calcifications bilaterally redemonstrated. There is no suspicious group of microcalcifications or new suspicious mass in either breast. Overall Assessment: Benign, BI-RAD 2 Management: Screening Mammogram of both breasts in 1 year. . Patient should continue monthly self-breast exams. A clinical breast exam by your physician is recommended on an annual basis. This exam should not preclude additional follow-up of suspicious palpable abnormalities. Note on Ann scores and lifetime risk: 1. A Ann score greater than 3% is considered moderate risk. If this is the case, consider specialist referral to assess eligibility for a risk reducing agent. 2. If overall lifetime risk for the development of breast cancer is 20% or higher, the patient may qualify for future screening with alternating mammogram and breast MRI. [facility], , 10/08/2024 10:24 AM. Electronically signed and approved by: Hima Hernadez M.D.
== END | disposition home or self-care (01) ==
LOC: RADMAMWWP 09:32
PROVIDERS: ATTEND Surgery
DX: Z12.31 Encounter for screening mammogram for malignant neoplasm of breast (principal); R92.1 Mammographic calcification found on diagnostic imaging of breast; R92.323 Mammographic fibroglandular density, bilateral breasts; Z80.3 Family history of malignant neoplasm of breast; Z78.0 Asymptomatic menopausal state; Z85.3 Personal history of malignant neoplasm of breast; Z92.0 Personal history of contraception
CPT/HCPCS: 77063; 77067